=== PATIENT | male | born 1995 | race Caucasian/White ===

== ENCOUNTER → 2016-11-13 | Outpatient (CLI) | payer MEDICAID ==
--- NOTE | 2016-11-13 17:04 | DX ---
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 The hip joint cartilage spaces are symmetric and normal. The femor al heads are well rounded, normally mineralized and well located. The SI joints and pubic symphysis l ook normal. There is no soft tissue calcification or ossification lateral to either hip. On the frog- leg lateral views there is undertubulation of both lateral femoral necks, both of which demonstrate c hronic cortical thickening. Overall mineralization is normal. 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 C onsider right hip MRI, if the patient's symptoms do not improve after a period of conservative therap y.
== END ==
LOC: CIMAGING 16:01
DX: M25.551 Pain in right hip (principal)
CPT/HCPCS: 73521-PO

== ENCOUNTER 2017-04-08 15:15 | Emergency (ER) | payer MEDICAID ==
[2017-04-08 15:31] VITALS: BP 135/66; PULSE 85; RESP 16; TEMP 97.7; O2SAT 96
--- NOTE | 2017-04-08 16:02 | EDPHY ---
H & P Stated Complaint: bite of forearm, swollen, throbbing 2 days ago Time Seen by Provider: 04/08/17 15:42 HPI/ROS: CHIEF COMPLAINT: Bite to left forearm HISTORY OF PRESENT ILLNESS: Patient complains of insect bite to the left forearm. He says this happened several days ago. At 1st it was minimally red. He said it is will to the size of a softball. Over the past 24 hours it has started to decrease. It was minimally painful. There is a central area of purulence with some surrounding erythem. It is associated with painful movement of the hand and fingers on the same extremity. No fever or chills. No numbness or tingling. He also feels a bump on his distal brachium. No other associated complaints or modifying factors. He denies any IV drug injections. TETANUS STATUS: Up-to-date less than 5 years ago REVIEW OF SYSTEMS: Ten systems reviewed and are negative unless otherwise noted in the HPI EXAMINATION General Appearance: Alert, no distress Head: normocephalic, atraumatic Cardiovascular: Pulses normal throughout. Symmetric radial pulses 2+. Brisk cap refill Neurological: A&O, sensory symmetric, strength symmetric. Good strength of the interossei. No wrist drop. Skin: Warm and dry. There is a small area of cellulitis on the left forearm, posteriorly. There is a central area of purulence and drainage. No fluctuance. Some surrounding induration. There is no evidence of tenosynovitis. There is no involvement of the elbow joint. The elbow is not warm or edematous. Extremities: Minimal tenderness over the cellulitis. Range of motion is fully intact in the left shoulder, elbow and wrist. Neurovascular intact distal to the area of infection. DIFFERENTIAL DIAGNOSES: Including but not limited to cellulitis, abscess, phlegmon, tenosynovitis, septic joint MDM: 4:00 p.m. Superficial cellulitis with possible early abscess formation on the left forearm , posterior. There is minimal fluctuance. I was able to incise and drain a minimal amount of purulence. I suspect this is more induration and edema. He has no evidence of septic joint or tenosynovitis. He has full range of motion without any limitations or difficulty. He is fully neuro intact distally. Tetanus is up-to-date. Discharged home with Bactrim and follow up here in wound recheck in 2 days. Return sooner for worsening symptoms. ED Precautions: Worsening pain. Erythema, edema, cyanosis, pallor, paresthesia or anesthesia. SUPERVISION: This patient was independently evaluated without direct examination by the attending physician. Case was discussed with attending physician. Source: Patient Exam Limitations: No limitations - Personal History Current Tetanus/Diphtheria Vaccine: Yes Current Tetanus Diphtheria and Acellular Pertussis (TDAP): Yes - Medical/Surgical History Hx Asthma: No Hx Chronic Respiratory Disease: No Hx Diabetes: No Hx Cardiac Disease: No Hx Renal Disease: No Hx Cirrhosis: No Hx Alcoholism: No Hx HIV/AIDS: No Hx Splenectomy or Spleen Trauma: No Other PMH: pmh- adhd. psh- r pinky - Social History Smoking Status: Never smoked Constitutional: Initial Vital Signs Temperature (C) 97.7 F 04/08/17 15:29 Heart Rate 85 04/08/17 15:29 Respiratory Rate 16 04/08/17 15:29 Blood Pressure 135/66 H 04/08/17 15:29 O2 Sat (%) 96 04/08/17 15:29 O2 Delivery Mode Room Air Allergies/Adverse Reactions: fish Allergy (Intermediate, Uncoded 05/09/16 14:44) itching and swelling Home Medications: Medication Instructions Recorded Sulfamethox/Tmp 800/160 mg 2 tab PO BID 10 Days 04/08/17 [Bactrim Ds] Vivance 04/08/17 Departure - Departure Disposition: Home, Routine, Self-Care Clinical Impression: Cellulitis of forearm, left Condition: Good Instructions: Cellulitis (ED), Abscess (ED) Additional Instructions: 1. Warm compresses as tolerated 2. Antibiotics until completion 3. Return here in 48 hours for wound recheck or sooner for worsening symptoms. Referrals: Khai Zelaya [place] [place] - As per Instructions Physician,Emergency DeptMD [Medical Doctor] - As per Instructions Prescriptions: Sulfamethox/Tmp 800/160 mg [Bactrim Ds] 2 tab PO BID 10 Days
== END 2017-04-08 16:18 | disposition home or self-care (01) ==
DX: L03.114 Cellulitis of left upper limb (principal); W57.XXXA Bitten or stung by nonvenomous insect and other nonvenomous arthropods, initial encounter

== ENCOUNTER 2017-04-17 16:39 | Emergency (ER) | payer MEDICAID ==
[2017-04-17 16:43] VITALS: RESP 16
--- NOTE | 2017-04-17 17:19 | EDPHY ---
H & P Stated Complaint: rash fever FLANNERY ears ringing Time Seen by Provider: 04/17/17 17:07 HPI/ROS: CHIEF COMPLAINT: Fever, rash nausea HISTORY OF PRESENT ILLNESS: This is a 21-year-old male presenting to the emergency department complaining of fever rash onset yesterday of 1400. Patient states he had been at a [employer] on 15 April unknown of any sick contacts there. Patient states yesterday fever started initially then he noticed the rash all over his body, last night intermittent headache with ringing in his ears dull neck ache. Today he states minimal neck ache full range of motion, but fever and rash and nausea has continued. Patient states he is able to tolerate p.o. intake, no vomiting or diarrhea. Patient also states he has been on Bactrim for 6 days for a arm cellulitis/folliculitis has not had any problems with taking the medication. Denies any shortness of breath or chest pain REVIEW OF SYSTEMS: Constitutional: Fever, chills. No changes in PO intake Eyes: No discharge. No blurred vision ENT: sore throat. Ringing in ears Cardiovascular: No chest pain, no palpitations. Respiratory: No cough, no shortness of breath. Gastrointestinal: No abdominal pain, no vomiting. Genitourinary: No hematuria. Musculoskeletal: No back pain. Dull neck ache "mostly gone away now" Skin: Rash Neurological: Intermittent headache. Source: Patient - Personal History Current Tetanus/Diphtheria Vaccine: Yes Current Tetanus Diphtheria and Acellular Pertussis (TDAP): Yes - Medical/Surgical History Hx Asthma: No Hx Chronic Respiratory Disease: No Hx Diabetes: No Hx Cardiac Disease: No Hx Renal Disease: No Hx Cirrhosis: No Hx Alcoholism: No Hx HIV/AIDS: No Hx Splenectomy or Spleen Trauma: No Other PMH: pmh- adhd. psh- r pinky - Social History Smoking Status: Never smoked - Physical Exam Exam: General Appearance: Alert, no distress. HEENT: Pupils equal and round no pallor. Conjunctiva injected. TMs normal bilaterally. Tonsillar hypertrophy with exudate, uvula midline. No strawberry tongue. Mucous membranes dry, lips cracked Respiratory: There are no retractions, lungs are clear to auscultation. Cardiovascular: Regular rate and rhythm. Gastrointestinal: Abdomen is soft and nontender, no masses, bowel sounds normal. Neurological: No focal deficits. Answering questions appropriately Skin: Diffuse macular papular rash. No petechiae Musculoskeletal: Neck is supple full range of motion. No meningismus, no nuchal rigidity Extremities: symmetrical, full range of motion. Psychiatric: Patient is oriented X 3, patient acting appropriately Constitutional: Initial Vital Signs Temperature (C) 38.6 C H 04/17/17 16:41 Heart Rate 98 04/17/17 16:41 Respiratory Rate 16 04/17/17 16:41 Blood Pressure 109/62 04/17/17 16:41 O2 Sat (%) 98 04/17/17 16:41 O2 Delivery Mode Room Air Allergies/Adverse Reactions: fish Allergy (Intermediate, Uncoded 05/09/16 14:44) itching and swelling Home Medications: Medication Instructions Recorded Sulfamethox/Tmp 800/160 mg 2 tab PO BID 10 Days 04/08/17 [Bactrim Ds] Vivance 04/08/17 Medical Decision Making ED Course/Re-evaluation: Discussed ED plan of care: CBC, BMP,lactate, rapid strep, and IV normal saline , 1000 mg Tylenol PO, 4 mg Zofran IV 1830: Patient re-evaluation---> no apparent distress, denies any nausea vomiting "I do feel somewhat better". 2000: Patient re-evaluation--> nonlabored respiratory effort, non ill-appearing , tolerating p.o. intake, patient states "I feel better, I do not feel as tired ". Discussed all discharge instructions with patient---> stable, discharge home Differential Diagnosis: Other differential diagnosis considered but not limited to sepsis, strep, electrolyte imbalance, and drug eruption - Data Points Laboratory Results: Laboratory Results 04/17/17 17:18 04/17/17 17:18 04/17/17 04/17/17 04/17/17 Unknown 17:32 17:18 WBC RBC Hgb Hct MCV MCH MCHC RDW Plt Count MPV Neut % (Auto) Lymph % (Auto) [place] % (Auto) Eos % (Auto) Baso % (Auto) Nucleat RBC Rel Count Absolute Neuts (auto) Absolute Lymphs (auto) Absolute Monos (auto) Absolute Eos (auto) Absolute Basos (auto) Absolute Nucleated RBC Immature Gran % Immature Gran # VBG Lactic Acid Sodium 133 mEq/L L mEq/L (134-144) Potassium 4.1 mEq/L mEq/L (3.5-5.2) Chloride 101 mEq/L mEq/L (97-110) Carbon Dioxide 20 mEq/l L mEq/l (22-31) Anion Gap 12 mEq/L mEq/L (8-16) BUN 12 mg/dL mg/dL (7-23) Creatinine 1.4 mg/dL H mg/dL (0.7-1.3) Estimated GFR > 60 Glucose 92 mg/dL mg/dL (70-100) Calcium 9.1 mg/dL mg/dL (8.5-10.4) Group A Strep Screen NEGATIVE (NEGATIVE) Group A Strep DNA Pending 04/17/17 04/17/17 17:18 17:18 WBC 4.11 10^3/uL 10^3/uL (3.80-9.50) RBC 4.71 10^6/uL 10^6/uL (4.40-6.38) Hgb 14.2 g/dL g/dL (13.7-17.5) Hct 39.7 % L % (40.0-51.0) MCV 84.3 fL fL (81.5-99.8) MCH 30.1 pg pg (27.9-34.1) MCHC 35.8 g/dL g/dL (32.4-36.7) RDW 12.1 % % (11.5-15.2) Plt Count 206 10^3/uL 10^3/uL (150-400) MPV 9.3 fL fL (8.7-11.7) Neut % (Auto) 74.9 % H % (39.3-74.2) Lymph % (Auto) 11.7 % L % (15.0-45.0) [facility] [place] % (Auto) 7.3 % % (4.5-13.0) Eos % (Auto) 5.4 % % (0.6-7.6) Baso % (Auto) 0.2 % L % (0.3-1.7) Nucleat RBC Rel Count 0.0 % % (0.0-0.2) Absolute Neuts (auto) 3.08 10^3/uL 10^3/uL (1.70-6.50) Absolute Lymphs (auto) 0.48 10^3/uL L 10^3/uL (1.00-3.00) Absolute Monos (auto) 0.30 10^3/uL 10^3/uL (0.30-0.80) Absolute Eos (auto) 0.22 10^3/uL 10^3/uL (0.03-0.40) Absolute Basos (auto) 0.01 10^3/uL L 10^3/uL (0.02-0.10) Absolute Nucleated RBC 0.00 10^3/uL 10^3/uL (0-0.01) Immature Gran % 0.5 % % (0.0-1.1) Immature Gran # 0.02 10^3/uL 10^3/uL (0.00-0.10) VBG Lactic Acid 1.0 mmol/L mmol/L (0.7-2.1) Sodium Potassium Chloride Carbon Dioxide Anion Gap BUN Creatinine Estimated GFR Glucose Calcium Group A Strep Screen Group A Strep DNA Medications Given: Discontinued Medications Acetaminophen (Tylenol) 1,000 mg PO EDNOW ONE Stop: 04/17/17 17:21 Last Admin: 04/17/17 17:46 Dose: 1,000 mg Diphenhydramine HCl (Benadryl Injection) 25 mg IVP EDNOW ONE Stop: 04/17/17 18:25 Last Admin: 04/17/17 18:34 Dose: 25 mg Sodium Chloride (Ns) 1,000 mls @ 0 mls/hr IV ONCE ONE PRN Reason: Wide Open Stop: 04/17/17 17:21 Last Admin: 04/17/17 17:34 Dose: 1,000 mls Sodium Chloride (Ns) 1,000 mls @ 0 mls/hr IV ONCE ONE PRN Reason: Wide Open Stop: 04/17/17 18:01 Last Admin: 04/17/17 18:14 Dose: 1,000 mls Sodium Chloride (Ns) 1,000 mls @ 0 mls/hr IV ONCE ONE PRN Reason: Wide Open Stop: 04/17/17 19:29 Last Admin: 04/17/17 19:35 Dose: 1,000 mls Ibuprofen (Motrin) 600 mg PO EDNOW ONE Stop: 04/17/17 18:01 Last Admin: 04/17/17 18:34 Dose: 600 mg Ondansetron HCl (Zofran) 4 mg IVP EDNOW ONE Stop: 04/17/17 17:21 Last Admin: 04/17/17 17:35 Dose: 4 mg Departure - Departure Disposition: Home, Routine, Self-Care Clinical Impression: Dehydration Fever Qualifiers: Fever type: unspecified Qualified Code(s): R50.9 - Fever, unspecified Pharyngitis Qualifiers: Pharyngitis/tonsillitis etiology: unspecified etiology Qualified Code(s): J02.9 - Acute pharyngitis, unspecified Condition: Good Instructions: Acetaminophen (By mouth), Ibuprofen (By mouth), Dehydration (ED) Additional Instructions: 1. Continue taking ibuprofen 600 mg every 6-8 hours as needed, Tylenol 500- 1000mg every 6 hours as needed 2. Increase fluid intake, Gatorade can be beneficial 3. Do not drink any alcohol at least for the next week. Stop taking the Bactrim this could be a component for your rash 4. He can also continue taking Benadryl as needed 25-50mg every 6-8 hours as needed 5. Follow up with your primary care provider next week 6. If at any point time symptoms worsen, such as: Fever on resolving greater than 101.1 for 3 days, nausea vomiting, chest pain return to the ER Referrals: MIGNON,LORIE [Other] - As per Instructions [facility],. [Clinic] - As per Instructions [facility],. [Clinic] - As per Instructions
[2017-04-17] MEDS ORDERED: ONDANSETRON 4 MG/2 ML VIAL IVP ONE (17:20)
[2017-04-17] MEDS ORDERED: NS 1,000 ML IV ONE ×3 (17:20→19:28)
[2017-04-17] MEDS ORDERED: ACETAMINOPHEN 500 MG TAB PO ONE (17:20)
[2017-04-17 17:31] LABS: % IMMATURE GRANULYOCYTES 0.5 % (0.0-1.1); ABSOLUTE IMMATURE GRANULOCYTES 0.02 10^3/uL (0.00-0.10); ADD DIFF? NO; ADD MORPH? NO; ADD SCAN? NO; ATYPICAL LYMPHOCYTE FLAG 0 (0-99); FRAGMENT RBC FLAG 0 (0-99); HEMATOCRIT 39.7 % (40.0-51.0); HEMOGLOBIN 14.2 g/dL (13.7-17.5); LEFT SHIFT FLG 0 (0-99); LIPEMIA HEMOLYSIS FLAG 90 (0-99); MEAN CELL HEMOGLOBIN 30.1 pg (27.9-34.1); MEAN CELL HEMOGLOBIN CONCENTR. 35.8 g/dL (32.4-36.7); MEAN CELL VOLUME 84.3 fL (81.5-99.8); MEAN PLATELET VOLUME 9.3 fL (8.7-11.7); PLATELET CLUMPS FLAG 0 (0-99); PLATELET COUNT 206 10^3/uL (150-400); RED BLOOD CELL COUNT 4.71 10^6/uL (4.40-6.38); RED CELL DISTRIBUTION WIDTH 12.1 % (11.5-15.2)
[2017-04-17 17:50] LABS: ANION GAP 12 mEq/L (8-16); CALCIUM 9.1 mg/dL (8.5-10.4); CARBON DIOXIDE 20 mEq/l (22-31); CHLORIDE 101 mEq/L (97-110); CREATININE 1.4 mg/dL (0.7-1.3); GLOMERULAR FILTRATION RATE > 60; GLUCOSE 92 mg/dL (70-100); POTASSIUM 4.1 mEq/L (3.5-5.2); SODIUM 133 mEq/L (134-144)
[2017-04-17] MEDS ORDERED: IBUPROFEN 600 MG TAB PO ONE (18:00)
[2017-04-17 18:49] VITALS: TEMP 100.4
[2017-04-17 20:29] VITALS: BP 121/58; PULSE 78; O2SAT 96
== END 2017-04-17 20:30 | disposition home or self-care (01) ==
DX: J02.9 Acute pharyngitis, unspecified (principal); E86.0 Dehydration
CPT/HCPCS: 96374; J1200; J2405

== ENCOUNTER 2017-08-01 14:56 | Emergency (ER) | payer MEDICAID ==
[2017-08-01 15:07] VITALS: BP 120/83; PULSE 79; RESP 16; TEMP 97.5; O2SAT 95
[2017-08-01] MEDS ORDERED: DOXYCYCLINE 100 MG PREPACK#2 BTL TAKEHOME ONE (16:53)
--- NOTE | 2017-08-01 16:54 | EDPHY ---
H & P Stated Complaint: redness and possible to infection to penis. Time Seen by Provider: 08/01/17 16:47 - Personal History Current Tetanus Diphtheria and Acellular Pertussis (TDAP): Unsure - Medical/Surgical History Hx Asthma: No Hx Chronic Respiratory Disease: No Hx Diabetes: No Hx Cardiac Disease: No Hx Renal Disease: No Hx Cirrhosis: No Hx Alcoholism: No Hx HIV/AIDS: No Hx Splenectomy or Spleen Trauma: No Other PMH: pmh- adhd. psh- r pinky - Social History Smoking Status: Never smoked Constitutional: Initial Vital Signs Temperature (C) 36.4 C 08/01/17 15:05 Heart Rate 79 08/01/17 15:05 Respiratory Rate 16 08/01/17 15:05 Blood Pressure 120/83 H 08/01/17 15:05 O2 Sat (%) 95 08/01/17 15:05 O2 Delivery Mode Room Air Allergies/Adverse Reactions: fish Allergy (Intermediate, Uncoded 05/09/16 14:44) itching and swelling Home Medications: Medication Instructions Recorded Vivance 04/08/17 Doxycycline Hyclate 100 mg PO BID #14 tablet 08/01/17 Medical Decision Making ED Course/Re-evaluation: CHIEF COMPLAINT: Possible abscess on penis HISTORY OF PRESENT ILLNESS: The patient is a 21 y/o male who is concerned he has an abscess on his penis. He has a history of an ingrown hair turning into an abscess and is concerned he developed the same thing. He is sexually active with his girlfriend and reports they are monogamous. He denies penile discharge , dysuria, fever, or any other symptoms. He is normally healthy. REVIEW OF SYSTEMS: A 10 point review of systems was performed and is negative with the exception of the elements mentioned in the history of present illness. PHYSICAL EXAM: HR, BP, O2 Sat, RR. Temp noted General Appearance: Alert, well hydrated, appropriate, and non-toxic appearing. Head: Atraumatic without scalp tenderness or obvious injury Eyes: Pupils equal, round, reactive to light and accommodation, EOMI, no trauma , no injection. Nose: Atraumatic, no rhinorrhea, clear. Throat: Mucus membranes moist. Neck: Supple Respiratory: No retractions, no distress, no wheezes, and no accessory muscle use. Lungs are clear to auscultation bilaterally. Cardiovascular: Regular rate and rhythm, no murmurs, rubs, or gallops. Good capillary refill all extremities. Gastrointestinal: Abdomen is soft, non-tender, non-distended, no masses, no rebound, no guarding, no peritoneal signs. : Well-circumscribed tiny cutaneous abscess that is freely moveable at the base of his penis Musculoskeletal: Normal active ROM of all extremities, atraumatic. Neurological: Alert, appropriate, and interactive. The patient has normal DTRs and non-focal cranial nerves, motor, sensory, and cerebellar exam. Skin: No rashes, good turgor, no nodules on palpation. PAST MEDICAL HISTORY: Denies PAST SURGICAL HISTORY: Denies SOCIAL HISTORY: [employer] student. Sexually active in monogamous relationship. DIFFERENTIAL DIAGNOSIS: The differential diagnosis for the patient's symptoms included but was not limited to cutaneous abscess, folliculitis, MRSA, viral syndrome, contact dermatitis, hernias. MEDICAL DECISION MAKING: This is a healthy 21 y/o male who presents with a small cutaneous abscess at the base of his penis. No indication for drainage and no evidence of system illness. Plan to treat with Doxycycline and urology follow up. Return precautions discussed. He is comfortable with this plan. - Data Points Medications Given: Discontinued Medications Doxycycline Hyclate (Vibramycin 100 Mg Prepack#2) 1 btl TAKEHOME EDNOW ONE Stop: 08/01/17 16:54 Last Admin: 08/01/17 17:06 Dose: 1 btl Departure - Departure Disposition: Home, Routine, Self-Care Clinical Impression: Cutaneous abscess Qualifiers: Site of cutaneous abscess: other site Qualified Code(s): L02.818 - Cutaneous abscess of other sites Condition: Good Instructions: Doxycycline (By mouth), Abscess (ED), Warm Compress or Soak (ED) Additional Instructions: 1. Take Doxycycline as prescribed. Be sure to complete entire prescription. This medication will make you more sensitive to sunlight so take precautions against this. 2. You can apply warm compresses to the site intermittently to help with symptoms. 3. Follow up with a urologist for any unimproved symptoms over the next few days. Referrals: [facility],. [Clinic] - As per Instructions Stephanie Barboza MD [Medical Doctor] - As per Instructions Prescriptions: Doxycycline Hyclate 100 mg PO BID #14 tablet Report Scribed for: Hossein Chamberlain Report Scribed by: Cyndie Keenan Date of Report: 08/01/17 Time of Report: 16:50
== END 2017-08-01 17:18 | disposition home or self-care (01) ==
DX: N48.21 Abscess of corpus cavernosum and penis (principal)

== ENCOUNTER 2018-01-22 14:52 | Emergency (ER) | payer MEDICAID ==
[2018-01-22] MEDS ORDERED: ONDANSETRON DISINTEGRATING 4 MG TAB PO ONE (15:14)
[2018-01-22] MEDS ORDERED: IBUPROFEN 600 MG TAB PO ONE (15:14)
[2018-01-22] MEDS ORDERED: NS 1,000 ML IV ONE (16:03)
[2018-01-22 16:20] LABS: PLATELET COUNT 222 10^3/uL (150-400)
[2018-01-22] MEDS ORDERED: METOCLOPRAMIDE 10 MG/2 ML VIAL IVP ONE (16:45)
--- NOTE | 2018-01-22 16:45 | EDPHY ---
H & P Stated Complaint: flu like symptoms cough/fever/n/v Time Seen by Provider: 01/22/18 16:39 HPI/ROS: CHIEF COMPLAINT: Fever, body aches HISTORY OF PRESENT ILLNESS: The patient is a 22-year-old man who comes to the emergency department complaining of a fever, body aches, cough, sore throat, runny nose and mild nausea that began yesterday. He has no significant past medical history. He denies trouble breathing or chest pain. No neck stiffness. REVIEW OF SYSTEMS: Constitutional: See HPI EENTM: See HPI Respiratory: See HPI Cardiac: denies: chest pain, irregular heart rate, lightheadedness, palpitations Gastrointestinal/Abdominal: See HPI Genitourinary: denies: dysuria, frequency, hematuria, pain Musculoskeletal: denies: joint pain, muscle pain Skin: denies: lesions, rash, jaundice, bruising Neurological: denies: headache, numbness, paresthesia, tingling, dizziness, weakness Hematologic/Lymphatic: denies: blood clots, easy bleeding, easy bruising Immunologic/allergic: denies: HIV/AIDS, transplant EXAM: GENERAL: Moderate distress HEAD: Atraumatic, normocephalic. EYES: Pupils equal round and reactive to light, extraocular movements intact, sclera anicteric, conjunctiva are normal. ENT: TMs normal, nares patent, oropharynx clear without exudates. Moist mucous membranes. NECK: Normal range of motion, supple without lymphadenopathy or JVD. LUNGS: Breath sounds clear to auscultation bilaterally and equal. No wheezes rales or rhonchi. HEART: Regular rate and rhythm without murmurs, rubs or gallops. ABDOMEN: Soft, nontender, normoactive bowel sounds. No guarding, no rebound. No masses appreciated. BACK: No CVA tenderness, no spinal tenderness, step-offs or deformities EXTREMITIES: Normal range of motion, no pitting or edema. No clubbing or cyanosis. NEUROLOGICAL: Cranial nerves II through XII grossly intact. Normal speech, normal gait. 5/5 strength, normal movement in all extremities, normal sensation PSYCH: Normal mood, normal affect. SKIN: Warm, dry, normal turgor, no visible rashes or lesions. Source: Patient Exam Limitations: No limitations - Personal History Current Tetanus/Diphtheria Vaccine: Unsure - Medical/Surgical History Hx Asthma: No Hx Chronic Respiratory Disease: No Hx Diabetes: No Hx Cardiac Disease: No Hx Renal Disease: No Hx Cirrhosis: No Hx Alcoholism: No Hx HIV/AIDS: No Hx Splenectomy or Spleen Trauma: No Other PMH: pmh- adhd. psh- r pinky - Family History Significant Family History: No pertinent family hx - Social History Smoking Status: Never smoked Alcohol Use: Sober Drug Use: None Constitutional: Initial Vital Signs Temperature (C) 38.1 C 01/22/18 14:59 Heart Rate 101 H 01/22/18 14:59 Respiratory Rate 18 01/22/18 14:59 Blood Pressure 117/69 01/22/18 14:59 O2 Sat (%) 96 01/22/18 14:59 O2 Delivery Mode Room Air Allergies/Adverse Reactions: fish Allergy (Intermediate, Uncoded 01/22/18 14:58) itching and swelling Home Medications: Medication Instructions Recorded CASEY 01/22/18 Medical Decision Making - Diagnostics Imaging Results: Imaging Impressions Chest X-Ray 01/22/18 16:03 Impression: Bilateral central bronchitis.. Imaging: Discussed imaging studies w/ senior [employer] administrator Radiologist ED Course/Re-evaluation: Patient is flu A positive. His fever is improved with Tylenol and ibuprofen. He has been hydrated. He is feeling better. Will discharge him at this time. We discussed Tamiflu and she declines because the nausea side effects. He does have mild bronchitis on his x-ray and feels better after a DuoNeb. I will give him a take-home pack of a few drops well. Differential Diagnosis: Partial list of the Differential diagnosis considered include but were not limited to; influenza, viral syndrome and although unlikely based on the history and physical exam, I also considered sepsis, pneumonia, meningitis. I discussed these differential diagnoses and the plan with the patient as well as the usual and expected course. The patient understands that the diagnosis is provisional and that in medicine we are not always correct and that further workup is often warranted. Usual and customary warnings were given. All of the patient's questions were answered. The patient was instructed to return to the emergency department should the symptoms at all worsen or return, otherwise to followup with the physician as we discussed. - Data Points Laboratory Results: Laboratory Results 01/22/18 15:51 01/22/18 15:51 01/22/18 01/22/1801/22/18 16:07 15:51 15:51 WBC 6.02 10^3/uL 10^3/uL (3.80-9.50) RBC 4.86 10^6/uL 10^6/uL (4.40-6.38) Hgb 14.9 g/dL g/dL (13.7-17.5) Hct 42.2 % % (40.0-51.0) MCV 86.8 fL fL (81.5-99.8) MCH 30.7 pg pg (27.9-34.1) MCHC 35.3 g/dL g/dL (32.4-36.7) RDW 12.5 % % (11.5-15.2) Plt Count 222 10^3/uL 10^3/uL (150-400) MPV 9.3 fL fL (8.7-11.7) Neut % (Auto) 79.1 % H % (39.3-74.2) Lymph % (Auto) 7.8 % L % (15.0-45.0) Wilkinson % (Auto) 11.6 % % (4.5-13.0) Eos % (Auto) 0.5 % L % (0.6-7.6) Baso % (Auto) 0.5 % % (0.3-1.7) Nucleat RBC Rel Count 0.0 % % (0.0-0.2) Absolute Neuts (auto) 4.76 10^3/uL 10^3/uL (1.70-6.50) Absolute Lymphs (auto) 0.47 10^3/uL L 10^3/uL (1.00-3.00) Absolute Monos (auto) 0.70 10^3/uL 10^3/uL (0.30-0.80) Absolute Eos (auto) 0.03 10^3/uL 10^3/uL (0.03-0.40) Absolute Basos (auto) 0.03 10^3/uL 10^3/uL (0.02-0.10) Absolute Nucleated RBC 0.00 10^3/uL 10^3/uL (0-0.01) Immature Gran % 0.5 % % (0.0-1.1) Immature Gran # 0.03 10^3/uL 10^3/uL (0.00-0.10) Sodium 137 mEq/L mEq/L (135-145) Potassium 4.2 mEq/L mEq/L (3.5-5.2) Chloride 99 mEq/L mEq/L (97-110) Carbon Dioxide 28 mEq/l mEq/l (22-31) Anion Gap 10 mEq/L mEq/L (8-16) BUN 6 mg/dL L mg/dL (7-23) Creatinine 1.2 mg/dL mg/dL (0.7-1.3) Estimated GFR > 60 Glucose 108 mg/dL H mg/dL (70-100) Calcium 9.4 mg/dL mg/dL (8.5-10.4) Nasal Influenza A PCR FLU A DETECTED H (NEGATIVE) Nasal Influenza B PCR NEGATIVE FOR FLU B (NEGATIVE) RSV (PCR) NEGATIVE FOR RSV (NEGATIVE) Medications Given: Discontinued Medications Acetaminophen (Tylenol) 1,000 mg PO EDNOW ONE Stop: 01/22/18 16:47 Last Admin: 01/22/18 16:48 Dose: 1,000 mg Albuterol Sulfate (Proventil Inh Prepack) 1 mdi TAKEHOME EDNOW ONE Stop: 01/22/18 17:48 Last Admin: 01/22/18 17:54 Dose: 1 mdi Albuterol/Ipratropium (Duoneb) 3 ml IH EDNOW ONE Stop: 01/22/18 17:18 Last Admin: 01/22/18 17:25 Dose: 3 ml Sodium Chloride (Ns) 1,000 mls @ 0 mls/hr IV ONCE ONE PRN Reason: Wide Open Stop: 01/22/18 16:04 Last Admin: 01/22/18 16:10 Dose: 1,000 mls Ibuprofen (Motrin) 600 mg PO EDNOW ONE Stop: 01/22/18 15:15 Last Admin: 01/22/18 15:19 Dose: 600 mg Metoclopramide HCl (Reglan Injection) 10 mg IVP EDNOW ONE Stop: 01/22/18 16:46 Last Admin: 01/22/18 16:48 Dose: 10 mg Ondansetron HCl (Zofran Odt) 4 mg PO EDNOW ONE Stop: 01/22/18 15:15 Last Admin: 01/22/18 15:19 Dose: 4 mg Departure - Departure Disposition: Home, Routine, Self-Care Clinical Impression: Influenza A Condition: Fair Instructions: Albuterol (By breathing), Influenza (ED) Referrals: NONE *PRIMARY CARE P,. [Primary Care Provider] - As per Instructions [facility],. [Clinic] - As per Instructions Stand Alone Forms: School Excuse
[2018-01-22] MEDS ORDERED: ACETAMINOPHEN 500 MG TAB PO ONE (16:46)
[2018-01-22] MEDS ORDERED: IPRATROPIUM/ALBUTEROL 3 ML DEYVIAL IH ONE (17:17)
[2018-01-22] MEDS ORDERED: ALBUTEROL INH PREPACK MDI TAKEHOME ONE (17:47)
[2018-01-22 18:00] VITALS: BP 120/56
== END 2018-01-22 18:00 | disposition home or self-care (01) ==
DX: J10.1 Influenza due to other identified influenza virus with other respiratory manifestations (principal)
CPT/HCPCS: 96374; J2765

== ENCOUNTER 2018-05-07 05:14 | Observation (INO) | payer OTHER, MEDICAID ==
[2018-05-07] MEDS ORDERED: NS 1,000 ML IV ONE (05:32)
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
[2018-05-07] MEDS ORDERED: IOPAMIDOL (ISOVUE-300) 100 ML BTL ONE (06:00)
[2018-05-07 06:17] LABS: PLATELET COUNT 292 10^3/uL (150-400)
[2018-05-07] MEDS ORDERED: ONDANSETRON 4 MG/2 ML VIAL IVP PRN (08:20)
[2018-05-07] MEDS ORDERED: LR 1,000 ML IV SCH (08:30)
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
[2018-05-07] MEDS ORDERED: IBUPROFEN 600 MG TAB PO SCH (14:00)
[2018-05-07 19:28] VITALS: BP 142/70
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
== END 2018-05-07 20:05 | disposition home or self-care (01) ==
LOC: EDUNIT# → F3N 09:10
PROVIDERS: ADMIT Surgery; ATTEND Surgery
DX: S27.321A Contusion of lung, unilateral, initial encounter (principal); S50.811A Abrasion of right forearm, initial encounter; F10.120 Alcohol abuse with intoxication, uncomplicated; Y90.6 Blood alcohol level of 120-199 mg/100 ml; R51 Headache; R40.2412 Glasgow coma scale score 13-15, at arrival to emergency department; M25.561 Pain in right knee; V89.9XXA Person injured in unspecified vehicle accident, initial encounter; Y92.9 Unspecified place or not applicable; J45.909 Unspecified asthma, uncomplicated; F90.9 Attention-deficit hyperactivity disorder, unspecified type; Z91.013 Allergy to seafood
CPT/HCPCS: 70450; 71260; 72125; 73562; 74177; 97161; G0378; 82435-PO; 82565-PO; 82947-PO; 84132-PO; 84295-PO; 84520-PO; 85014-PO; G0480; Q9967

== ENCOUNTER 2018-07-05 17:48 | Emergency (ER) | payer MEDICAID, OTHER ==
[2018-07-05] MEDS ORDERED: valACYclovir 500 MG TAB PO ONE (18:15)
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
[2018-07-05 19:12] VITALS: BP 130/70
[2018-07-06 11:49] LABS: GC AMPLIFICATION GENPROBE NEGATIVE (NEGATIVE)
== END 2018-07-05 19:10 | disposition home or self-care (01) ==
DX: A60.01 Herpesviral infection of penis (principal)
CPT/HCPCS: 87529-90

== ENCOUNTER 2018-08-11 18:06 | Emergency (ER) | payer MEDICAID ==
[2018-08-11 18:11] VITALS: BP 123/71
--- NOTE | 2018-08-11 18:13 | EDPHY ---
H & P Stated Complaint: sore throat, produtive cough, fever Time Seen by Provider: 08/11/18 18:12 HPI/ROS: CHIEF COMPLAINT: Sore throat, URI HISTORY OF PRESENT ILLNESS: 22-year-old immunocompetent male complaining of 4 days of URI symptoms including, rhinorrhea, sore throat, normally produce of cough, fever, myalgias. No dyspnea. No headache. No nuchal rigidity. No abdominal pain. No nausea or vomiting, diarrhea. No rash. vomiting REVIEW OF SYSTEMS: 10 systems reviewed and negative with the exception of the elements mentioned in the history of present illness PAST MEDICAL & SURGICAL HISTORY: No pertinent medical or surgical history SOCIAL HISTORY: Nonsmoker. Student PHYSICAL EXAM (Prior to examination, patient consented to physical exam, hands were washed and my usual and customary physical exam procedures followed) 1) GENERAL: Well-developed, well-nourished, alert and oriented. Appears nontoxic 2) HEAD: Normocephalic, atraumatic 3) HEENT: Pupils equal, round, reactive to light bilaterally. Sclera anicteric. Nasopharynx, oropharynx, clear, no lesions. No tonsillar enlargement or exudate. Positive rhinorrhea Moist Mucous membranes. Ears bilaterally with normal tympanic membranes. No evidence of otitis media or otitis externa 4) NECK: Full range of motion, no meningeal signs. 5) LUNGS: Clear auscultation bilaterally, no wheezes, no rhonchi, no retractions. 6) HEART: Regular rate and rhythm, no murmur, no heave, no gallop. 7) ABDOMEN: No guarding, no rebound, no focal tenderness, negative McBurney's, negative Palacio's, negative Rovsing's, negative peritoneal sign, 8) MUSCULOSKELETAL: Moving all extremities, no focal areas of tenderness, no obvious trauma. No peripheral edema or discoloration. 9) BACK: No CVA tenderness, no midline vertebral tenderness, no fluctuance, no step-off, no obvious trauma, no visual or palpable abnormality. 10) SKIN: No rash, no petechiae. 11) Psychiatric: Patient is oriented X 3, there is no agitation. DIFFERENTIAL DIAGNOSIS: In no particular order including but not limited to bronchitis, pneumonia, meningitis - Personal History Current Tetanus Diphtheria and Acellular Pertussis (TDAP): Yes - Medical/Surgical History Hx Asthma: No Hx Chronic Respiratory Disease: No Hx Diabetes: No Hx Cardiac Disease: No Hx Renal Disease: No Hx Cirrhosis: No Hx Alcoholism: No Hx HIV/AIDS: No Hx Splenectomy or Spleen Trauma: No Other PMH: ADHD - Social History Smoking Status: Never smoked Constitutional: Initial Vital Signs Temperature (C) 36.6 C 08/11/18 18:09 Heart Rate 77 08/11/18 18:09 Respiratory Rate 16 08/11/18 18:09 Blood Pressure 123/71 H 08/11/18 18:09 O2 Sat (%) 96 08/11/18 18:09 O2 Delivery Mode Room Air Allergies/Adverse Reactions: fish Allergy (Intermediate, Uncoded 07/05/18 17:50) itching and swelling Home Medications: Medication Instructions Recorded Lisdexamfetamine Dimesylate 40 mg PO DAILY PRN 05/07/18 [Vyvanse] Albuterol [Proventil Inhaler HFA 1 - 2 puffs IH Q4PRN PRN #1 mdi 08/11/18 (*)] Benzonatate [Tessalon Pearles (RX)] 200 mg PO TID PRN #15 cap 08/11/18 Ipratropium 0.06% Nasal [Atrovent 2 sprays EACHNARE QID #1 mdi 08/11/18 0.06% Nasal (RX)] Medical Decision Making ED Course/Re-evaluation: Patient's symptoms are more than likely secondary to viral etiology. For these reasons, I do not feel antibiotics are currently indicated. In addition, I do not identify indication for chest x-ray as the patient's lungs are clear bilaterally, has a normal pulse ox, speaking full sentences, no signs of respiratory distress. The patient understands that this diagnosis is provisional and can never be 100% accurate. We discussed supportive therapy and prescriptions which have been provided to him. Usual and customary warnings were given concerning the clinical impression and all the patient's questions were answered. The patient was instructed to return to the emergency department should her symptoms worsen or return, or develop any new symptoms, otherwise to followup as directed in discharge instructions. I saw this patient independently based on established practice protocols. Care of patient under supervision of supervising physician Dr Navarro with whom I discussed case. Departure - Departure Disposition: Home, Routine, Self-Care Clinical Impression: Upper respiratory infection Qualifiers: URI type: unspecified viral URI Qualified Code(s): J06.9 - Acute upper respiratory infection, unspecified Condition: Good Instructions: Upper Respiratory Infection (ED) Additional Instructions: You were examined in the emergency department today for upper respiratory infection (URI) like symptoms. While more URIs are caused by viral illnesses, we cannot always exclude the possibility of a bacterial infection that may require treatment with antibiotics. Return to the emergency department immediately for change in breathing habits, change in voice, change in swallowing habits, change in mental status, or any other symptoms that concern you. Referrals: [facility]. [Clinic] - 2-3 days, call for appt. Stand Alone Forms: School Excuse Prescriptions: Albuterol [Proventil Inhaler HFA (*)] 1 - 2 puffs IH Q4PRN PRN #1 mdi PRN Reason: Cough, Moderate Benzonatate [Tessalon Pearles (RX)] 200 mg PO TID PRN #15 cap PRN Reason: Cough, Moderate Ipratropium 0.06% Nasal [Atrovent 0.06% Nasal (RX)] 2 sprays EACHNARE QID #1 mdi
== END 2018-08-11 18:25 | disposition home or self-care (01) ==
DX: J06.9 Acute upper respiratory infection, unspecified (principal)

== ENCOUNTER 2018-08-17 15:30 | Emergency (ER) | payer MEDICAID ==
--- NOTE | 2018-08-17 16:14 | EDPHY ---
H & P Time Seen by Provider: 08/17/18 16:12 HPI/ROS: Chief complaint. Sore throat, sinus pressure HPI. 22-year-old male with 1 week history of sore throat and cough. He was seen August 11 for same. It was felt that this was viral syndrome and was treated with inhalers and Tessalon Perles. He notes continuing sore throat. Right frontal pressure. Headache. No fever. Sick contacts at school. Otherwise no recent travel. No abdominal pain, vomiting, diarrhea, rash. ROS 10 systems were reviewed and negative with the exception of the elements mentioned in the history of present illness Past Medical/Surgical History: Attention deficit hyperactivity disorder Social History: Single, nonsmoker, no alcohol Smoking Status: Never smoked Physical Exam: General Appearance: Alert well-developed male mild distress vital signs are stable Eyes: Pupils equal and round no pallor or injection. ENT, tympanic membranes are normal. Pharynx slightly injected without exudate. Respiratory: There are no retractions, lungs are clear to auscultation. Cardiovascular: Regular rate and rhythm. Gastrointestinal: Abdomen is soft and nontender, no masses, bowel sounds normal. Neurological: Awake and alert, sensory and motor exams grossly normal. Skin: Warm and dry, no rashes. Musculoskeletal: Neck is supple nontender. Extremities symmetrical, full range of motion. Psychiatric: Patient is oriented X 3, there is no agitation. Constitutional: Initial Vital Signs Temperature (C) 36.9 C 08/17/18 15:35 Heart Rate 70 08/17/18 15:35 Respiratory Rate 18 08/17/18 15:35 Blood Pressure 134/96 H 08/17/18 15:35 O2 Sat (%) 94 08/17/18 15:35 O2 Delivery Mode Room Air Allergies/Adverse Reactions: fish Allergy (Intermediate, Uncoded 08/17/18 15:34) itching and swelling Home Medications: Medication Instructions Recorded Lisdexamfetamine Dimesylate 40 mg PO DAILY PRN 05/07/18 [Vyvanse] Albuterol [Proventil Inhaler HFA 1 - 2 puffs IH Q4PRN PRN #1 mdi 08/11/18 (*)] Benzonatate [Tessalon Pearles (RX)] 200 mg PO TID PRN #15 cap 08/11/18 Ipratropium 0.06% Nasal [Atrovent 2 sprays EACHNARE QID #1 mdi 08/11/18 0.06% Nasal (RX)] Azithromycin [Zithromax] 250 mg PO DAILY #6 tab 08/17/18 Benzonatate [Tessalon Pearles (RX)] 100 mg PO TID PRN #14 cap 08/17/18 Medical Decision Making - Diagnostics Imaging Results: Chest x-ray interpreted by me as no evidence for pneumonia ED Course/Re-evaluation: Re-evaluation 5:10 p.m.. Patient and I discussed imaging and lab results. We discussed treatment plan including criteria for return importance of follow-up and further evaluation. He expresses understanding and agreement Differential Diagnosis: This is likely viral syndrome. I considered pneumonia, sinusitis, strep throat - Data Points Laboratory Results: 08/17/18 08/17/18 Unknown 15:40 Group A Strep Screen NEGATIVE (NEGATIVE) Group A Strep DNA Pending Departure - Departure Disposition: Home, Routine, Self-Care Clinical Impression: Acute pharyngitis Qualifiers: Pharyngitis/tonsillitis etiology: unspecified etiology Qualified Code(s): J02.9 - Acute pharyngitis, unspecified Condition: Good Instructions: Pharyngitis (ED) Additional Instructions: Drink plenty of fluids and stay hydrated. Ibuprofen 600 mg every 6 hr for disc come Continue the inhaler. Use the Tessalon Perles Zithromax as antibiotic Return for worsening symptoms. Recheck at work and [place] in 2-3 days if not improved Referrals: NONE *PRIMARY CARE P,. [Primary Care Provider] - As per Instructions [facility]] - 2-3 days, if not improved Stand Alone Forms: School Excuse Prescriptions: Azithromycin [Zithromax] 250 mg PO DAILY #6 tab Benzonatate [Tessalon Pearles (RX)] 100 mg PO TID PRN #14 cap PRN Reason: Cough, Moderate
[2018-08-17 17:28] VITALS: BP 132/92
== END 2018-08-17 17:28 | disposition home or self-care (01) ==
DX: J02.9 Acute pharyngitis, unspecified (principal)

== ENCOUNTER 2018-10-04 11:32 | Emergency (ER) | payer MEDICAID ==
--- NOTE | 2018-10-04 12:15 | EDPHY ---
H & P Stated Complaint: swollen lips and fingers Time Seen by Provider: 10/04/18 11:54 HPI/ROS: CHIEF COMPLAINT: Bumps on hands and mouth HISTORY OF PRESENT ILLNESS: 22-year-old male diagnosed mononucleosis 2 weeks ago [employer], complaining of 2 days of painful lesions on his mouth as well as the palmar surfaces of his hand. No genital lesions. No plantar lesions. No other rash. Normal urine output. Tolerating oral intake albeit with pain. No headache. No fever no chills. No chest pain. No abdominal pain. No dyspnea. PRIMARY CARE PROVIDER: REVIEW OF SYSTEMS: 10 systems reviewed and negative with the exception of the elements mentioned in the history of present illness PAST MEDICAL & SURGICAL HISTORY: Attention deficit hyperactivity disorder. Recent diagnosis mononucleosis. SOCIAL HISTORY: Nonsmoker PHYSICAL EXAM (Prior to examination, patient consented to physical exam, hands were washed and my usual and customary physical exam procedures followed) 1) GENERAL: Well-developed, well-nourished, alert and oriented. Sleeping, appears to be in no acute distress Appears to be in no acute distress. 2) HEAD: Normocephalic, atraumatic 3) HEENT: Pupils equal, round, reactive to light bilaterally. Sclera anicteric. Nasopharynx, oropharynx, clear, no lesions. No tonsillar enlargement or exudate. Discrete, painful lesions on his lower lip as well as the palate and tongue. Swallowing secretions. Moist mucous membranes. . Ears bilaterally with normal tympanic membranes. No evidence of otitis media otitis externa 4) NECK: Full range of motion, no meningeal signs. Positive cervical adenopathy 5) LUNGS: Clear auscultation bilaterally, no wheezes, no rhonchi, no retractions. 6) HEART: Regular rate and rhythm, no murmur, no heave, no gallop. 7) ABDOMEN: No guarding, no rebound, no focal tenderness, negative McBurney's, negative Palacio's, negative Rovsing's, negative peritoneal sign, 8) MUSCULOSKELETAL: Moving all extremities, no focal areas of tenderness, no obvious trauma. No peripheral edema or discoloration. 9) BACK: No CVA tenderness, no midline vertebral tenderness, no fluctuance, no step-off, no obvious trauma, no visual or palpable abnormality. 10) SKIN: The palmar surface of hands multiple discrete tender erythematous lesions. Nonvesicular. Non weeping. No plantar lesions or lesions on feet. No other rashes visualized on body. 11) Psychiatric: Patient is oriented X 3, there is no agitation. DIFFERENTIAL DIAGNOSIS: In no particular include but not limited to viral exanthem, [id number] disease, meningitis - Personal History Current Tetanus/Diphtheria Vaccine: Yes Current Tetanus Diphtheria and Acellular Pertussis (TDAP): Yes - Medical/Surgical History Hx Asthma: Yes Hx Chronic Respiratory Disease: No Hx Diabetes: No Hx Cardiac Disease: No Hx Renal Disease: No Hx Cirrhosis: No Hx Alcoholism: No Hx HIV/AIDS: No Hx Splenectomy or Spleen Trauma: No Other PMH: ADHD, asthma, pertussis, - Social History Smoking Status: Never smoked Constitutional: Initial Vital Signs Temperature (C) 37.1 C 10/04/18 11:39 Heart Rate 82 10/04/18 11:39 Respiratory Rate 16 10/04/18 11:39 Blood Pressure 118/101 H 10/04/18 11:39 O2 Sat (%) 96 10/04/18 11:39 O2 Delivery Mode Room Air Allergies/Adverse Reactions: fish Allergy (Intermediate, Uncoded 08/17/18 15:34) itching and swelling Home Medications: Medication Instructions Recorded Lisdexamfetamine Dimesylate 40 mg PO DAILY PRN 05/07/18 [Vyvanse] Albuterol [Proventil Inhaler HFA 1 - 2 puffs IH Q4PRN PRN #1 mdi 08/11/18 (*)] Medical Decision Making ED Course/Re-evaluation: Patient appears well overall, does not appear toxic. He is swallowing his secretions, no clinical evidence of volume depletion. We discussed more than likely viral etiology, possible Coxsackie virus. We discussed supportive care, Tylenol, Motrin. Doubt meningitis. Doubt Wheeler-Ludwin. Doubt toxic epidermal necrolysis. Recommend continued hydration. He feels comfortable being discharged. My usual and customary discharge precautions instructions provided. Care of patient under supervision of secondary supervising physician Dr Navarro with whom I discussed case. Departure - Departure Disposition: Home, Routine, Self-Care Clinical Impression: Hand, foot and mouth disease Condition: Good Instructions: Hand, Foot, and Mouth Disease (ED) Additional Instructions: Return to the ER if you are unable to keep food or fluid down, decrease in urine output, worsening symptoms or any other symptoms that concern you Adult Pain & Fever Control: We recommend Acetaminophen (Tylenol) and Ibuprofen (Motrin,Advil) for pain and fever control. When fever is high or pain severe, both drugs can be used at the same time, but at different intervals. Please note the time differences. Your dose is: Acetaminophen 650mg every 4 to 6 hours Ibuprofen 600mg every 6 hours with food OR Note: do not take Acetaminophen with Hydrocodone (Vicodin, Lortab) or Oycodone (Percocet). These medications also contain Acetaminophen. No more than 3000mg of Acetaminophen should be taken in 24 hours (for an adult). Referrals: [facility],. [Clinic] - 2-3 days, call for appt.
[2018-10-04 12:40] VITALS: BP 143/77
== END 2018-10-04 12:40 | disposition home or self-care (01) ==
DX: B08.4 Enteroviral vesicular stomatitis with exanthem (principal); F90.9 Attention-deficit hyperactivity disorder, unspecified type; J45.909 Unspecified asthma, uncomplicated

== ENCOUNTER 2018-12-04 22:34 | Emergency (ER) | payer MEDICAID ==
--- NOTE | 2018-12-04 22:45 | EDPHY ---
General - History Smoking Status: Never smoked Time Seen by Provider: 12/04/18 22:45 Narrative: CLINICAL IMPRESSION: Possible allergic reaction ASSESSMENT/PLAN: Patient is a 23-year-old male with a history of seafood allergy who presents to the emergency department with sensation of throat tightness and abdominal pain after he ate crab. The patient is well appearing, his oropharynx is clear with no evidence of angioedema. His oxygen saturation was 96% with no evidence of hypoxia or airway compromise. He was normotensive. Patient has had no recent medication use, do not suspect drug reaction. There were no clinical findings to suggest anaphylaxis, angioedema, urticaria or SJS/TENS. Query mild allergic reaction secondary to known allergen. The patient was given a L of normal saline , Pepcid, Solu-Medrol and Benadryl in the emergency department. He was observed for a prolonged period of time, on repeat examination he is sleeping however easily arousable. He reports that he is feeling much better, denies any further throat tightness or upset stomach. His abdomen was soft and nontender, no peritoneal signs. Patient still appears to be clinically intoxicated. Case discussed with Dr. Moran who will resume care of this patient at this time. DIFFERENTIAL DX: Differential diagnosis including but not limited to anaphylaxis, allergic reaction, urticaria, SJS/TENS, angioedema ED COURSE: 2226: Case discussed with Dr. Moran 0104: On repeat examination the patient is sleeping, his vital signs are within normal limits. He is easily arousable, reports that he is feeling much better and denies any further complaints of throat tightness or abdominal discomfort. His oropharynx is clear without evidence of angioedema. There is no rash. His oxygen saturation is 96% on room air. 0108: Reviewed case with Dr. Moran, she will resume care of this patient at this time. CHIEF COMPLAINT: Possible allergic reaction HPI: Patient is a 23-year-old male with a known sensitivity to seafood who presents to the emergency department with possible allergic reaction after eating crab. Patient reports approximately 1 hr prior to arrival he ate a sandwich that contained crab, shortly thereafter he started to experience some itching and throat tightness as well as burning sensation in his abdomen. This does feel similar to when he has had allergic reactions in the past. No history of anaphylaxis, does not have an EpiPen. Patient also endorses a long day of drinking, has had approximately 13 shots of alcohol over the last 8 hrs. Patient denies any recent fevers, chills or other illness. He complains of scratchiness in his throat, denies any difficulty with passing secretions or hoarseness. He denies any rash. His stomach feels generally upset and "burning ". He has not had any nausea or vomiting. He denies any other complaint. PMH: Denies Family History: Noncontributory Social History: Regular alcohol, denies illicit drug use or cigarette smoking REVIEW OF SYSTEMS: All other systems negative Constitutional: No fever, no chills, appetite change. Eyes: No discharge, vision change ENT: Scratchy throat. No congestion, ear pain. Cardiovascular: No chest pain, no palpitations. Respiratory: No cough, no shortness of breath. Gastrointestinal: Abdominal discomfort. No vomiting, diarrhea. Genitourinary: No hematuria, dysuria, flank pain. Musculoskeletal: No back pain, joint swelling, joint pain, myalgias. Skin: No rashes, color change. Neurological: No headache, dizziness, weakness. PHYSICAL EXAM: General Appearance: Patient is well-appearing and in no acute distress. HENT: Normocephalic, atraumatic. Bilateral external ears are normal. Bilateral tympanic membranes are normal with pearly paulino reflex. Nares are clear, mucosa is pink. Oropharynx is clear, uvula is midline. There is no tonsillar enlargement or exudate. There is no angioedema. His phonation is normal, there is no stridor. The dentition is normal. Eyes: PERRLA, no acute vision change, nystagmus, swelling, discharge, pain or photosensitivity. Conjunctiva pink, no pallor or injection. Neck: Supple, nontender, no lymphadenopathy, no midline pain, FROM, no meningismus. Respiratory: There are no retractions, lungs are clear to auscultation. Cardiac: Regular rate and rhythm, no murmurs or gallops. Gastrointestinal: Abdomen is soft, nontender, bowel sounds normal, no masses/ hernia, no rigidity, guarding or focal peritoneal findings. Neurological: Alert and oriented x 3, CN 2-12 grossly intact, normal gait no ataxia, DTR's intact, normal sensation and strength Skin: Warm, dry, no rashes, no nodules on palpation. Musculoskeletal: Extremities are symmetrical, full range of motion, no tenderness, deformity, swelling, or erythema. Psychiatric: Patient is oriented X 3, there is no agitation. MEDICAL DECISION MAKING: Patient was seen independently. Secondary supervising physician at time of evaluation was Dr. Moran, she will resume care of this patient. Diagnosis: Allergic reaction. New, requires workup Summary: See Assessment and Plan for summary of ED visit Clinical lab tests: Not applicable. Independent visualization of images, tracing, or specimens: Not applicable. Decision to obtain medical records or history from someone other than the patient: Yes, friend Review / Summarize previous medical records: Yes Discussed patient with another provider: Yes, Dr. Moran Patient Progress: Stable, dispo pending. (Tameka Ross) PHYSICIAN DOCUMENTATION: The patient was evaluated and managed by the Physician Grey Inspector. My co- signature indicates that I have reviewed this chart and I agree with the findings and plan of care as documented. I am the secondary supervising physician. (Jocelyn Moran) - Objective Vital Signs: Initial Vital Signs Temperature (C) 36.7 C 12/04/18 22:37 Heart Rate 88 12/04/18 22:37 Respiratory Rate 16 12/04/18 22:37 Blood Pressure 133/80 H 12/04/18 22:37 O2 Sat (%) 96 12/04/18 22:37 O2 Delivery Mode Room Air O2 (L/minute) 2 Allergies/Adverse Reactions: fish Allergy (Intermediate, Uncoded 12/04/18 22:37) itching and swelling Home Medications: Medication Instructions Recorded Lisdexamfetamine Dimesylate 40 mg PO DAILY PRN 05/07/18 [Vyvanse] Medications Given: Discontinued Medications Diphenhydramine HCl (Benadryl Injection) 25 mg IVP EDNOW ONE Stop: 12/04/18 22:51 Last Admin: 12/04/18 23:03 Dose: 25 mg Famotidine (Pepcid) 20 mg IVP EDNOW ONE Stop: 12/04/18 22:51 Last Admin: 12/04/18 23:02 Dose: 20 mg Sodium Chloride (Ns) 1,000 mls @ 0 mls/hr IV ONCE ONE PRN Reason: Wide Open Stop: 12/04/18 22:51 Last Admin: 12/04/18 23:02 Dose: 1,000 mls Methylprednisolone Sodium Succinate (Solu-Medrol) 125 mg IVP EDNOW ONE Stop: 12/04/18 22:51 Last Admin: 12/04/18 23:02 Dose: 125 mg Departure - Departure Disposition: Home, Routine, Self-Care Clinical Impression: Allergic reaction Qualifiers: Encounter type: initial encounter Qualified Code(s): T78.40XA - Allergy, unspecified, initial encounter Alcohol intoxication Qualifiers: Complication of substance-induced condition: uncomplicated Qualified Code(s): F10.920 - Alcohol use, unspecified with intoxication, uncomplicated Condition: Good Instructions: Food Allergy (ED), Alcohol Intoxication (ED) Additional Instructions: DISCHARGE INSTRUCTIONS FROM YOUR DOCTOR Thank you for visiting our emergency department today. Please keep in mind that discharge from the emergency department does not mean that there is nothing wrong - it simply means that we have not identified an emergency condition that requires further evaluation or treatment in the hospital. You should always plan to follow up with primary care for re-evaluation of your condition in the next 2-3 days. Please abstain from drinking large quantities of alcohol. Avoid any known allergens and exposures. Pepcid 40 mg daily. This is over the counter. Benadryl 25 mg every 4-6 hours as needed for breakthrough itching, hives and/or swelling. Schedule a follow-up visit with your primary care provider for re-evaluation next week. Watch closely for any signs of throat tightness and/or difficulty breathing. These symptoms can suggest a life threatening allergic reaction and require immediate attention of a medical professional. Return for recurrent facial swelling,swelling involving the mouth, lips, tongue , for difficulty breathing or swallowing, shortness of breath, wheezing,fainting , development of fever, for severe headache, neck stiffness, or for any other new, worsening, or worrisome symptoms. People present with illnesses and injuries in different ways, and it is always possible that we have missed something. You may always return for re-evaluation if symptoms worsen or if they are not improving or if you develop new/different symptoms. Again, thank you for choosing our emergency department. We hope that you feel better. Referrals: NONE *PRIMARY CARE P,. [Primary Care Provider] - As per Instructions (Please follow-up with Ron Zuleta)
[2018-12-04] MEDS ORDERED: FAMOTIDINE 20 MG/2 ML SDV IVP ONE (22:50)
[2018-12-04] MEDS ORDERED: methylPREDNISolone SOD SUCC 125 MG/2 ML VIAL IVP ONE (22:50)
[2018-12-04] MEDS ORDERED: NS 1,000 ML IV ONE (22:50)
[2018-12-04] MEDS ORDERED: methylPREDNISolone SOD SUCC 125 MG/2 ML VIAL ONE (22:52)
[2018-12-04] MEDS ORDERED: FAMOTIDINE 20 MG/NACL/50 ML BAG IV ONE (22:52)
[2018-12-05 03:24] VITALS: BP 130/74
== END 2018-12-05 03:39 | disposition home or self-care (01) ==
DX: T78.40XA Allergy, unspecified, initial encounter (principal); F10.920 Alcohol use, unspecified with intoxication, uncomplicated
CPT/HCPCS: 96374; J1200; J2930

== ENCOUNTER 2019-02-02 21:49 | Emergency (ER) | payer MEDICAID ==
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
[2019-02-02] MEDS ORDERED: HYDROCOD/APAP 5/325 PREPACK#6 BTL TAKEHOME ONE (23:01)
[2019-02-02 23:07] VITALS: BP 130/78
== END 2019-02-02 23:07 | disposition home or self-care (01) ==
DX: S43.102A Unspecified dislocation of left acromioclavicular joint, initial encounter (principal); V19.9XXA Pedal cyclist (driver) (passenger) injured in unspecified traffic accident, initial encounter; Y93.55 Activity, bike riding
CPT/HCPCS: A4565